=== PATIENT | female | born 1990 | race Hispanic/Latino ===

== ENCOUNTER 2018-11-07 09:34 | Outpatient (CLI) | payer BC ==
[2018-11-07 10:05] LABS: Hemoglobin 15.1 gm/dl (10.1-14.3); Mean Corpuscular HGB Conc 34 % (30-34); Mean Corpuscular Volume 91 fl (79-97); Platelet Count 308 K/mm3 (140-440); Red Blood Count 4.96 M/mm3 (3.65-5.03); Red Cell Distribution Width 13.6 % (13.2-15.2)
[2018-11-07 10:28] LABS: Alanine Aminotransferase 16 units/L (7-56); BUN/Creatinine Ratio 16; Blood Urea Nitrogen 13 mg/dL (7-17); Calcium 9.3 mg/dL (8.4-10.2); Hemolysis Index 2
== END 2018-11-07 09:35 | disposition home or self-care (01) ==
LOC: LAB 09:34
PROVIDERS: ATTEND Physician Assistant Medical
DX: R00.2 Palpitations (principal); L70.0 Acne vulgaris
CPT/HCPCS: 36415; 80053; 83735; 84436; 84443; 85027

== ENCOUNTER 2018-11-19 15:36 | Outpatient (CLI) | payer BC ==
[2018-11-21 08:12] LABS: HIV-1 Antibody Differentiation SEE SCANNED RESULT; HIV-2 Antibody Differentiation SEE SCANNED RESULT
== END 2018-11-19 15:37 | disposition home or self-care (01) ==
LOC: LAB 15:36
PROVIDERS: ATTEND Obstetrics & Gynecology
DX: L70.9 Acne, unspecified (principal); Z11.3 Encounter for screening for infections with a predominantly sexual mode of transmission
CPT/HCPCS: 36415; 82670; 83001; 86592; 86689; 86695; 86706; 86803

== ENCOUNTER 2018-11-25 16:19 | Outpatient (CLI) | payer BC ==
--- NOTE | 2018-11-25 17:35 | XRay Report ---
Left hip, 2 views INDICATION: Chronic hip pain FINDINGS: The joint space is maintained. There is no fracture or dislocation. No spurring or arthriti c change. No bone lesion or periostitis. No significant abnormality. IMPRESSION: Negative study Signer Name: Will Shepard MD Signed: 11/25/2018 5:31 PM Workstation Name: [id number]
--- NOTE | 2018-11-25 17:36 | XRay Report ---
Left hand, 3 views INDICATION: Pain following fall today FINDINGS: The joint space is maintained. Several nondisplaced fracture lines are seen involving the h ead of the proximal phalanx of the fifth finger. The remainder of the fifth finger is intact as well as is the remaining hand. Signer Name: Will Shepard MD Signed: 11/25/2018 5:32 PM Workstation Name: [id number]
== END 2018-11-25 16:20 | disposition home or self-care (01) ==
LOC: XRAY 16:19
PROVIDERS: ATTEND Physician Assistant Medical
DX: S62.607A Fracture of unspecified phalanx of left little finger, initial encounter for closed fracture (principal); M25.552 Pain in left hip; W19.XXXA Unspecified fall, initial encounter; Y93.89 Activity, other specified; Y92.89 Other specified places as the place of occurrence of the external cause; Y99.8 Other external cause status

== ENCOUNTER 2019-12-19 14:06 | Outpatient (CLI) | payer BC ==
[2019-12-19 15:05] LABS: Hepatitis C Virus Antibody Non-Reactive (NonReactive)
== END 2019-12-19 14:07 | disposition home or self-care (01) ==
LOC: LAB 14:06
PROVIDERS: ATTEND Obstetrics & Gynecology
DX: Z11.3 Encounter for screening for infections with a predominantly sexual mode of transmission (principal)
CPT/HCPCS: 36415; 86592; 86689; 86706; 86803

== ENCOUNTER 2020-01-08 11:50 | Outpatient (CLI) | payer BC | END 2020-01-08 11:51 | disposition home or self-care (01) | LOC: LAB 11:50 | DX: H16.4 Corneal neovascularization (principal); H10.022 Other mucopurulent conjunctivitis, left eye | CPT/HCPCS: 87116 ==

== ENCOUNTER 2020-08-12 11:16 | Outpatient (CLI) | payer BC ==
[2020-08-12 12:29] LABS: Amorphous Crystals,Urine 3+; Bilirubin,Urine NEG (Negative); Blood,Urine NEG (Negative); Color,Urine Yellow (Yellow); Protein,Urine <15 mg/dL mg/dL (Negative); Urobilinogen,Urine < 2.0 mg/dL (<2.0)
[2020-08-12 12:35] LABS: Basophils % (Auto) 0.6 % (0.0-1.8); Eosinophils # (Auto) 0.1 K/mm3 (0.0-0.4); Eosinophils % (Auto) 1.7 % (0.0-4.3); Hematocrit 38.8 % (30.3-42.9); Hemoglobin 13.4 gm/dl (10.1-14.3); Lymphocytes # (Auto) 1.6 K/mm3 (1.2-5.4); Lymphocytes % (Auto) 33.4 % (13.4-35.0); Mean Corpuscular HGB Conc 35 % (30-34); Mean Corpuscular Volume 95 fl (79-97); Monocytes # (Auto) 0.4 K/mm3 (0.0-0.8); Platelet Count 367 K/mm3 (140-440)
[2020-08-12 12:45] LABS: Alanine Aminotransferase 8 units/L (7-56); Albumin 4.9 g/dL (3.9-5); Blood Urea Nitrogen 9 mg/dL (7-17); Calcium 9.3 mg/dL (8.4-10.2); Hemolysis Index 6
[2020-08-12 12:50] LABS: BUN/Creatinine Ratio 15
[2020-08-12 12:51] LABS: RBC,Urine < 1.0 /HPF (0.0-6.0)
[2020-08-12 12:52] LABS: WBC,Urine < 1.0 /HPF (0.0-6.0)
== END 2020-08-12 11:17 | disposition home or self-care (01) ==
LOC: LAB 11:16
PROVIDERS: ATTEND Nurse Practitioner Family
DX: Z79.899 Other long term (current) drug therapy (principal)
CPT/HCPCS: 36415; 80053; 81001; 85025

== ENCOUNTER 2020-10-25 10:42 | Outpatient (CLI) | payer BC ==
--- NOTE | 2020-10-25 11:25 | XRay Report ---
RIGHT FOOT 3 VIEWS INDICATION: PAIN IN RIGHT FOOT. COMPARISON: None. IMPRESSION: No acute osseous or soft tissue abnormality. No significant DJD. Signer Name: Feroz Mcmillan Jr, MD Signed: 10/25/2020 11:21 AM Workstation Name: [id number]
== END 2020-10-25 10:43 | disposition home or self-care (01) ==
LOC: XRAY 10:42
PROVIDERS: ATTEND Orthopaedic Surgery
DX: M79.671 Pain in right foot (principal); M21.611 Bunion of right foot